=== PATIENT | male | born 1970 | race African-American/Black ===

== ENCOUNTER → 2017-03-18 | Outpatient (CLI) | payer OTHER ==
--- NOTE | 2017-03-23 09:51 | SLEEP ---
DATE OF STUDY: 03/18/2017 ATTENDING PHYSICIAN: JERALD De Los Santos. The patient is a 46-year-old who weighs 340 pounds with a BMI of 46. The patient has moderate to severe subjective hypersomnia with an P[place] score of 16. Home sleep study was performed at [facility]. Total recording time was 382 minutes. During the night study, the patient had no central or mixed apneas. There were 46 obstructive apneas and no hypopneas. It should be noted that the patient's abdominal belt and the flow probes were off for at least several hours during the testing, which may have underestimated his LV. Review of nocturnal oximetry study revealed a mean oxygen saturation of 94% with the lowest of 85%. 0.3 minutes were spent in oxygen saturation of less than 90%. Mean heart rate was 58 beats per minute. IMPRESSION: 1. Mild sleep apnea-hypopnea syndrome with moderate increase during supine sleep. Total AHI is 7 per hour with a supine AHI of 19 per hour. As discussed above, the probe was off for several hours and it may have underestimated the severity of sleep apnea. 2. No clinically significant nocturnal hypoxia. RECOMMENDATIONS: 1. The patient is clinically symptomatic with an Pax[place] score of 16. The patient would benefit from return to the Sleep Lab for in-lab titration. 2. Alternate treatment options will include oral appliance as recommended by the dentist. 3. Weight loss is strongly advised. 4. Avoid [employer] depressants. 5. Caution regarding driving until symptoms of sleep apnea resolve with the above recommendations. JESSIE MCARTHUR MD DR: TIFFANI/ilan JOB#: [id number] / [id number] SHEKHAR Jose MD, SARAH PA MTDD
== END | disposition home or self-care (01) ==
LOC: RT 08:20
PROVIDERS: ATTEND Physician Assistant
DX: E66.01 Morbid (severe) obesity due to excess calories (principal); R06.81 Apnea, not elsewhere classified; R06.83 Snoring; R40.0 Somnolence
CPT/HCPCS: G0399